=== PATIENT | male | born 1975 | race Caucasian/White ===

== ENCOUNTER → 2016-12-31 | Outpatient (CLI) | payer OTHER ==
[~2016-12-31] MED LIST: CHOLESTEROL PO; NOMEDS *; OMEPRAZOLE40 MG PO; PREDNISONE 10MG10 MG PO; PREDNISONE 20MG20 MG PO
--- NOTE | 2016-12-31 17:38 | RADIOLOGY REPORT PS360 ---
HIP LT 2-3V W/PELVIS IF PERFOR HISTORY: LEFT HIP PAIN ORDERING PHYSICIAN: Tami Casillas MD PATIENT AGE: 41 years COMPARISON: None FINDINGS: There is slight decrease in the hip joint space superiorly with minimal osteosclerosis of the acetabular roof consistent with mild osteoarthritic change. No fracture or dislocation. No lytic or blastic change. Unremarkable SI joint on the left. 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
== END ==
LOC: RAD 16:16
DX: M25.552 Pain in left hip (principal)